=== PATIENT | female | born 1955 | race Caucasian/White ===

== ENCOUNTER 2020-05-04 09:24 | Outpatient (CLI) | payer OTHER | END 2020-05-04 09:25 | disposition home or self-care (01) | LOC: NUCLEAR 09:24 | PROVIDERS: ATTEND Family Medicine | DX: M81.0 Age-related osteoporosis without current pathological fracture (principal) ==

== ENCOUNTER 2025-05-12 08:58 | Outpatient (CLI) | payer OTHER | END 2025-05-12 09:07 | disposition home or self-care (01) | LOC: SONOGRAMA 08:58 | PROVIDERS: ATTEND Physical Medicine & Rehabilitation | DX: M25.511 Pain in right shoulder (principal) ==